=== PATIENT | female | born 1940 | race Caucasian/White ===

== ENCOUNTER 2017-10-02 10:12 | Outpatient (CLI) | payer MEDICARE | END 2017-10-02 10:13 | disposition home or self-care (01) | LOC: BICRAD 10:12 | PROVIDERS: ATTEND Internal Medicine Cardiovascular Disease | DX: R06.02 Shortness of breath (principal) | CPT/HCPCS: 71046 ==

== ENCOUNTER 2017-11-28 11:38 | Day surgery (SDC) | payer MEDICARE ==
[2017-11-28] MEDS ORDERED: Midazolam HCl 2 mg/2 ml Vial ONE (13:18)
[2017-11-28] MEDS ORDERED: Fentanyl 100 MCG/2 ML VIAL ONE (13:18)
--- NOTE | 2017-11-28 15:44 | MRI ---
MRI LUMBAR SPINE NONCONTRAST 11/28/17 HISTORY: Low back pain with right leg radiculopathy. FINDINGS: radiographs are not available for direct correction, therefore the lowest lumbar type vertebra will be designated as L5, with the remainder numbered accordingly. The conus medullaris has a normal appearance. Discogenic end plate changes are present throughout th e bone marrow. There is desiccation of all of the intervertebral discs. 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 Significant degenerative changes involve the partially visualized lower thoracic spine. At the T11-12 level, there is far right lateral protrusion of the intervertebral disc, compressing the right T11 n erve root within the neural foramen. T12-L1: Disc space narrowing. Posterior central disc protrusion with slight effacement of the thecal sac. Neural foramina are patent. L1-2: Disc space narrowing. Minimal degenerative retrolisthesis. Posterior disc bulge. Circumferentia l degenerative changes with mild stenosis of the central canal. Moderate to severe bilateral foramin al stenoses. L2-3: Very mild disc bulge. Mild stenosis of the central canal and each neural foramen. L3-4: Disc space narrowing. Minimal degenerative spondylolisthesis. Posterior disc bulge and circumfe rential degenerative changes with very severe stenosis of the central canal and moderate to severe st enosis of each neural foramen. L4-5: Grade I degenerative spondylolisthesis. Posterior disc bulge and circumferential degenerative c hanges with very severe stenosis of the central canal and severe stenosis of each neural foramen. L5-S1: Osteophytosis. Thecal sac is patent. Mild stenosis of each neural foramen. IMPRESSION: Severe multilevel degenerative changes throughout the lumbar spine including severe central canal and foraminal stenoses, most pronounced at the L3-4 and L4-5 levels. There is also far right lateral protrusion of the disc at the T11-12 level, compressing the right T11 nerve root. POS: [facility]
== END 2017-11-28 15:45 | disposition home or self-care (01) ==
LOC: SDC/OP 11:38
PROVIDERS: ATTEND Neurological Surgery
DX: M48.062 Spinal stenosis, lumbar region with neurogenic claudication (principal); M47.26 Other spondylosis with radiculopathy, lumbar region; M51.24 Other intervertebral disc displacement, thoracic region
CPT/HCPCS: 72148; J2250; J3010

== ENCOUNTER 2017-12-25 13:49 | Outpatient (CLI) | payer MEDICARE ==
[2017-12-25 15:44] LABS: Anion Gap 13 mmol/L (10-20); BUN (Urea Nitrogen) 16 mg/dL (9.8-20.1); Calc. Creatinine Clearance 0 mL/min (70-130); Calcium 10.5 mg/dL (7.8-10.44); Carbon Dioxide 31 mmol/L (23-31); Chloride 102 mmol/L (98-107); Estimated GFR-MDRD 57; Glucose 92 mg/dL (83-110); Potassium 3.5 mmol/L (3.5-5.1); Sodium 142 mmol/L (136-145)
== END 2017-12-25 13:50 | disposition home or self-care (01) ==
LOC: LABBT 13:49
PROVIDERS: ATTEND Neurological Surgery
DX: Z01.818 Encounter for other preprocedural examination (principal); M48.061 Spinal stenosis, lumbar region without neurogenic claudication
CPT/HCPCS: 80048; 93005; 93010

== ENCOUNTER 2017-12-27 06:21 | Day surgery (SDC) | payer MEDICARE ==
[2017-12-25 14:13] VITALS: BMI 33.3
--- NOTE | 2017-12-26 22:36 | HP ---
HISTORY OF PRESENT ILLNESS: Ms. Lara is a 77-year-old woman referred to us by Dr. Campo for severe low back pain and neurogenic claudication symptoms for many years. She has had epidural stero id injections and RFA procedures with him and while they did help, they are only for short-lived inte rvals. She had an MRI from [place] that reveals grade I spondylolisthesis at L3-L4 and L4-L5 with associated severe central canal and neural foraminal narrowing that likely accounts for the majority of her symptoms. PAST MEDICAL HISTORY: Significant for hypertension, gastroesophageal reflux disease, anxiety, hypert ension. CURRENT MEDICATIONS: Pantoprazole, lisinopril, furosemide, duloxetine, amlodipine, metoprolol, cloni dine, pravastatin, tramadol. ALLERGIES: SULFA DRUGS. PHYSICAL EXAMINATION: NEUROLOGIC: The patient is alert and oriented x3. Gait is severely antalgic and slowed with a stoop ed posture. Lower extremity motor exam is normal. ASSESSMENT: Lumbar neurogenic claudication. PLAN: Dr. Hernandez met with the patient, reviewed imaging, and ultimately advocated for an L3 through L 5 decompression. He explained to the patient the risks, benefits, and alternatives of the procedure. The patient expressed understanding and would like to move forward with surgery as discussed. I do believe the patient is mentally competent and capable of making medical decisions for herself. We w ill move forward with surgery as planned. Winston Flor PA-C dictating for Dr. Hernandez.
[2017-12-27] MEDS ORDERED: CEFAZOLIN/Water 2 GM/20 ML SYRINGE ONE ×2 (07:01→16:36)
[2017-12-27] MEDS ORDERED: Bupivacaine HCl 0.5%/Epinephrine 1:200,000/PF 30 ml Vial ONE (07:33)
[2017-12-27] MEDS ORDERED: Fentanyl 100 MCG/2 ML VIAL ONE ×2 (08:50→11:18)
--- NOTE | 2017-12-27 13:09 | OP ---
DATE OF PROCEDURE: 12/27/2017 SURGEON: Perry Hernandez M.D. MUFFLER TENDER: Winston Flor PA-C. INDICATION: Pain. DIAGNOSIS: Lumbar stenosis. PROCEDURE PERFORMED: L3 through L5 lumbar decompression. ANESTHESIA: General. TECHNIQUE: The patient was brought into the operating room and placed under general anesthesia. She was flipped from a supine or prone position on the operating room table. A linear incision was plan nirav spanning L3 through L5. After prepping and draping and after an appropriate operative pause, the incision was created. The soft tissues were swept away from midline. Self-retaining retractors wer e placed in the wound for optimal exposure. After confirming the appropriate level with C-arm fluoro scopy, an Adson rongeur was used to remove the spinous processes of L3 through L5. High-speed cuttin g drill bit as well as 2, 3 and 4-mm Kerrisons were then used to perform a laminectomy extending from the mid portion of L3 to the mid portion of L5. After decompressing these segments, the wound was i rrigated. Hemostasis was maintained throughout. The wound was then closed in anatomic layers and a pressure dressing was applied. There were no known procedural complications.
[2017-12-27] MEDS ORDERED: Acetaminophen/Codeine 30-300mg Tablet ONE (13:20)
[2017-12-27] MEDS ORDERED: PROPOFOL 200 MG/20 ML VIAL ONE (13:42)
[2017-12-27] MEDS ORDERED: Glycopyrrolate 0.2 MG/ML 5 ML SYRINGE ONE (13:42)
[2017-12-27] MEDS ORDERED: ePHEDrine/0.9% NaCl/PF SYRINGE 50 mg/10 ml ONE (13:42)
[2017-12-27] MEDS ORDERED: PHENYLEPHRINE-NS 100 MCG/ML 10 ML SYRINGE ONE (13:42)
[2017-12-27] MEDS ORDERED: Dexamethasone 20 MG/5 ML VIAL ONE (13:42)
[2017-12-27] MEDS ORDERED: Lidocaine 1% PF 5 ML VIAL ONE (13:42)
[2017-12-27] MEDS ORDERED: Ondansetron PF 4 MG/2 ML Vial ONE (13:42)
== END 2017-12-27 17:30 | disposition home or self-care (01) ==
LOC: SDC 06:21
PROVIDERS: ATTEND Neurological Surgery
PROC: 00NY0ZZ Release Lumbar Spinal Cord, Open Approach (ICD-10-PCS; principal; 2017-12-27)
DX: M48.062 Spinal stenosis, lumbar region with neurogenic claudication (principal); I10 Essential (primary) hypertension; K21.9 Gastro-esophageal reflux disease without esophagitis; Z88.2 Allergy status to sulfonamides; Z79.899 Other long term (current) drug therapy
CPT/HCPCS: 76001; 96374; 96375; J0131; J0670; J1100; J2001; J2405; J2704; J3010

== ENCOUNTER 2018-03-06 10:15 | Outpatient (CLI) | payer MEDICARE | END 2018-03-06 10:16 | disposition home or self-care (01) | LOC: BICMAMMO 10:15 | PROVIDERS: ATTEND Internal Medicine | DX: Z12.31 Encounter for screening mammogram for malignant neoplasm of breast (principal); N63.10 Unspecified lump in the right breast, unspecified quadrant; N63.20 Unspecified lump in the left breast, unspecified quadrant | CPT/HCPCS: 77063; 77067 ==

== ENCOUNTER 2018-05-07 15:18 | Outpatient (CLI) | payer MEDICARE ==
--- NOTE | 2018-05-07 18:42 | MRI ---
MRI CERVICAL SPINE NONCONTRAST: 05/07/2018 HISTORY: A 77-year-old female with M54.12, cervical radiculopathy, and cervicalgia. COMPARISON: None. FINDINGS: Vertebral body heights are maintained. Mild to moderate disk space narrowing at all levels, greatest at C4-C5 and at C5-C6. Vertebral body heights are maintained. Large, approximately 1.2 cm, heterog eneously T1 hyperintense and hypointense, and heterogeneously STIR hyperintense and hypointense, intr aosseous lesion involving a large portion of the T1 vertebral body, probably a hemangioma of bone (ve nous malformation of bone). Broad-based and irregularity-shaped disk-osteophytic bar complexes encro ach upon the ventral aspect of the spinal canal at all levels. In addition to the broad-based ones, there is a focal left paracentral such disk-osteophyte complex or small disk herniation at C5-C6, ind enting the ventral surface of the spinal cord. Bilateral uncinate process osteophytes encroach upon the neural foramina, causing varying degrees of neural foraminal stenosis. Multilevel bilateral dege nerative facet disease, ranging in severity from normal bilaterally at C5-C6 to severe on the left at C3-C4 and C4-C5. Moderate facet DJD at C7-T1 bilaterally, causing grade 1 anterolisthesis of C7 on T1. Findings regarding the spinal canal and the neural foraminal caliber are as follows: C1-C2: No central stenosis. C2-C3: Ligamentum flavum thickening. Mild central stenosis. Severe right neural foraminal stenosis . Mild to moderate left neural foraminal stenosis. C3-C4: Mild central stenosis. Moderate to severe bilateral neural foraminal stenosis. C4-C5: Moderate central spinal canal stenosis. Moderate right neural foraminal stenosis. Severe le ft neural foraminal stenosis. C5-C6: Small, focal, left paracentral disk-osteophyte complex or disk herniation slightly indents th e left ventral surface of the spinal cord. Ligamentum flavum thickening. Severe central spinal reji l stenosis. Moderate to severe bilateral neural foraminal stenosis. C6-C7: Moderate to severe central spinal canal stenosis. Mild to moderate bilateral neural foramina l stenosis. C7-T1: No central stenosis. Mild to moderate bilateral neural foraminal stenosis. IMPRESSION: 1. Moderate cervical spondylosis with multilevel degenerative disk disease and facet osteoarthrosis of varying degrees. 2. Severe central spinal canal stenosis at C5-C6. 3. Multilevel high-grade neural foraminal stenosis, including severe. POS: [facility]
== END 2018-05-07 15:19 | disposition home or self-care (01) ==
LOC: TBSIIMAG 15:18
PROVIDERS: ATTEND Neurological Surgery
DX: M47.22 Other spondylosis with radiculopathy, cervical region (principal); M50.10 Cervical disc disorder with radiculopathy, unspecified cervical region; M48.02 Spinal stenosis, cervical region
CPT/HCPCS: 72141

== ENCOUNTER 2018-09-13 09:55 | Outpatient (CLI) | payer MEDICARE ==
--- NOTE | 2018-09-17 10:58 | RAD ---
MODIFIED BARIUM SWALLOW WITH SPEECH THERAPIST: Date: 09/13/18 HISTORY: Unspecified dysphagia, feeding difficulty, vocal cord lesion. Fluoroscopy Time: 31 seconds. Dose: 0.11844 mGy*M^2. FINDINGS/IMPRESSION: Minimal delay in swallowing reflex. Several episodes of penetration without nasir aspiration. Please see speech therapy report for additional findings and recommendations. POS: [facility]
== END 2018-09-13 09:56 | disposition home or self-care (01) ==
PROVIDERS: ATTEND Physician Assistant Medical
DX: I69.991 Dysphagia following unspecified cerebrovascular disease (principal); R63.3 Feeding difficulties; J38.3 Other diseases of vocal cords
CPT/HCPCS: 74230

== ENCOUNTER 2018-10-26 09:19 | Outpatient (CLI) | payer MEDICARE ==
--- NOTE | 2018-10-26 10:13 | BD ---
EXAM: DEXA bone density examination HISTORY: 78-year-old postmenopausal female for screening COMPARISON: None FINDINGS: L1--bone mineral density 0.790 g/sq cm; T score -1.8 L2--bone mineral density 0.924 g/sq cm; T score -0.9 L3--bone mineral density 0.948 g/sq cm; T score -1.2 L4--bone mineral density 0.970 g/sq cm; T score -0.8 Total L1-L4--bone mineral density 0.910 g/sq cm; T score -1.2 Left femoral neck--bone mineral density0.641; T score -1.9 Total proximal left femur--bone mineral density 0.747; T score -1.6 IMPRESSION: Osteopenia. This patient has a 10 year WHO fracture risk of a major osteoporotic fracture of 12% and of a hip fracture of 3%.
== END 2018-10-26 09:20 | disposition home or self-care (01) ==
LOC: BICMAMMO 09:19
PROVIDERS: ATTEND Internal Medicine Rheumatology
DX: M81.0 Age-related osteoporosis without current pathological fracture (principal); M85.89 Other specified disorders of bone density and structure, multiple sites
CPT/HCPCS: 77080

== ENCOUNTER 2018-11-14 13:27 | Outpatient (CLI) | payer MEDICARE ==
--- NOTE | 2018-11-14 13:42 | RAD ---
XR Thoracic Spine 2 View HISTORY: Back pain no injury. COMPARISON: None. FINDINGS: The bones are demineralized. There is a mild scoliotic change to the lower thoracic spine c onvex to the left. Marked degenerative osteophytic changes of the mid and lower thoracic spine region are noted. Pedicles are intact. IMPRESSION: Scoliosis and marked arthritic changes of the spine.
== END 2018-11-14 13:28 | disposition home or self-care (01) ==
LOC: BICRAD 13:27
PROVIDERS: ATTEND Internal Medicine Rheumatology
DX: M81.0 Age-related osteoporosis without current pathological fracture (principal); M41.9 Scoliosis, unspecified; M46.94 Unspecified inflammatory spondylopathy, thoracic region
CPT/HCPCS: 72070

== ENCOUNTER 2019-12-06 13:43 | Outpatient (CLI) | payer MEDICARE ==
--- NOTE | 2019-12-06 14:16 | BD ---
EXAM: DEXA bone density examination HISTORY: 79-year-old postmenopausal female for screening COMPARISON: 10/26/2018 FINDINGS: L1--bone mineral density 0.846 g/sq cm; T score -1.3 L2--bone mineral density 0.979 g/sq cm; T score -0.4 L3--bone mineral density 1.030 g/sq cm; T score -0.5 L4--bone mineral density 1.114 g/sq cm; T score 0.5 Total L1-L4--bone mineral density 0.997 g/sq cm; T score -0.5 Left femoral neck--bone mineral density0.684; T score -1.5 Total proximal left femur--bone mineral density 0.866; T score -0.6 Right femoral neck--bone mineral density0.645; T score -1.8 Total proximal right femur--bone mineral density 0.788; T score -1.3 IMPRESSION: Osteopenia. This patient has a 10 year WHO fracture risk of a major osteoporotic fracture of 13% and of a hip fracture of 3.2%.
== END 2019-12-06 13:44 | disposition home or self-care (01) ==
LOC: BICMAMMO 13:43
PROVIDERS: ATTEND Internal Medicine Rheumatology
DX: M81.0 Age-related osteoporosis without current pathological fracture (principal); M85.89 Other specified disorders of bone density and structure, multiple sites
CPT/HCPCS: 77080

== ENCOUNTER 2020-04-20 14:48 | Outpatient (CLI) | payer MEDICARE ==
--- NOTE | 2020-04-20 15:20 | MMO ---
Bilateral MAMMO Bilat Screen [facility]. CLINICAL HISTORY: Patient is 79 years old and is seen for screening. The patient has no family history of breast cancer. The patient has no personal history of cancer. The patient has a history of left cyst aspiration - benign. VIEWS: The views performed were: bilateral craniocaudal with tomosynthesis and bilateral mediolateral oblique with tomosynthesis. FILMS COMPARED: The present examination has been compared to prior imaging studies performed at [facility] on 02/10/2015, 01/28/2016, 02/27/2017 and 03/06/2018. This study has been interpreted with the assistance of computer-aided detection. MAMMOGRAM FINDINGS: There are scattered fibroglandular densities. There are benign appearing calcifications seen in both breasts. There are no suspicious masses, suspicious calcifications, or new areas of architectural distortion. IMPRESSION: THERE IS NO MAMMOGRAPHIC EVIDENCE OF MALIGNANCY. A ROUTINE FOLLOW-UP MAMMOGRAM IN 1 YEAR IS RECOMMENDED. THE RESULTS OF THIS EXAM WERE SENT TO THE PATIENT. ACR BI-RADS Category 2 - Benign finding MAMMOGRAPHY NOTE: 1. A negative mammogram report should not delay a biopsy if a dominant of clinically suspicious mass is present. 2. Approximately 10% to 15% of breast cancers are not detected by mammography. 3. Adenosis and dense breasts may obscure an underlying neoplasm. Reported by: DILEEP COLVIN MD Electonically Signed: [id number]
== END 2020-04-20 14:49 | disposition home or self-care (01) ==
LOC: BICMAMMO 14:48
PROVIDERS: ATTEND Family Medicine
DX: Z12.31 Encounter for screening mammogram for malignant neoplasm of breast (principal)
CPT/HCPCS: 77063; 77067

== ENCOUNTER 2021-03-08 10:20 | Inpatient (IN) | payer MEDICARE ==
[2021-03-08] MEDS ORDERED: Cefepime 2 GM VIAL ONE (11:14)
[2021-03-08 11:17] LABS: ALT (SGPT) 87 U/L (8-55); AST (SGOT) 87 U/L (5-34); Albumin 3.4 g/dL (3.4-4.8); Alkaline Phosphatase 68 U/L (40-110); Anion Gap 17 mmol/L (10-20); BUN (Urea Nitrogen) 27 mg/dL (9.8-20.1); Bilirubin, Total 1.8 mg/dL (0.2-1.2); Calc. Creatinine Clearance 0 mL/min (70-130); Calcium 8.8 mg/dL (7.8-10.44); Carbon Dioxide 24 mmol/L (23-31); Chloride 101 mmol/L (98-107); Globulin 2.2 g/dL (2.4-3.5); Glucose 100 mg/dL (83-110); Potassium 4.1 mmol/L (3.5-5.1); Protein, Total 5.6 g/dL (5.8-8.1); Sodium 138 mmol/L (136-145)
[2021-03-08 11:32] LABS: Hemoglobin 13.2 g/dL (12.0-16.0); Mean Corpuscular HGB CONC 33.3 g/dL (32.0-36.0); Mean Corpuscular Hemoglobin 32.8 pg (27.0-31.0); Mean Corpuscular Volume 98.5 fL (78.0-98.0); Mean Platelet Volume 7.4 fL (7.4-10.4); Platelet Count 282 thou/uL (130-400); RBC Distribution Width 13.8 % (11.5-14.5); Red Blood Cell (RBC) Count 4.02 mill/uL (4.20-5.40); White Blood Cell (WBC) Count 14.6 thou/uL (4.8-10.8)
[2021-03-08 11:39] LABS: CKMB 4.2 ng/mL (0-6.6)
[2021-03-08 11:54] LABS: Band 47 % (5-11); Lymphocytes 13 % (21-51); MDiff Complete? YES; Metamyelocyte 8 % (0-0); Monocytes 2 % (0-10); Myelocyte 1 % (0-0); Neutrophil 29 % (42-75); Nucleated RBC 1 % (0); Platelet Morphology Comment Appears Adequate; Polychromasia SLIGHT = 2-3 cells (100X) (0-2/hpf); Reflex for Review?? YES; Vacuoles MODERATE
[2021-03-08] MEDS ORDERED: VANCOMYCIN 1.75 GM/350 ML BAG 1.75 GM in Premix Bag 1 BAG IVPB SCH (12:15)
[2021-03-08] MEDS ORDERED: Vancomycin HCl 1 GM in Sodium Chloride 0.9% 250 ML 300 ML IVPB SCH (12:48)
[2021-03-08] MEDS ORDERED: Senokot S 8.6-50 MG TAB PO PRN (12:48)
[2021-03-08] MEDS ORDERED: Ondansetron PF 4 MG/2 ML Vial IVP PRN (12:48)
[2021-03-08] MEDS ORDERED: Norepinephrine 8 MG/0.9% NS 250 ML IVPB SCH (12:48)
[2021-03-08] MEDS ORDERED: Sodium Chloride 0.9% 1,000 ML IV SCH (12:48)
[2021-03-08] MEDS ORDERED: Calcium Carbonate 500 MG ChewTAB PO PRN (12:48)
[2021-03-08] MEDS ORDERED: Bisacodyl 10 MG SUPP PR PRN (12:48)
[2021-03-08] MEDS ORDERED: Guaifenesin DM 100-10/5 ML UDCUP PO PRN (12:48)
[2021-03-08] MEDS ORDERED: HYDROcodone/Acetaminophen 5/325 mg Tablet PO PRN (12:48)
[2021-03-08 12:54] LABS: Bacteria/HPF None Seen HPF (None Seen); Bilirubin Negative (Negative); Blood, Urine Negative (Negative); Clarity Turbid (Clear); Glucose, Urine (Dipstick) Normal (Negative); Ketone, Urine Negative (Negative); Leukocyte Negative Leu/uL (Negative); Nitrite Negative (Negative); Protein, Urine (Dipstick) 200 mg/dL (Neg-Trace); RBC/HPF 0-3 HPF (0-3); Specific Gravity, Urine 1.017 (1.002-1.036); Squamous Epithelial 0-3 HPF (0-3); Urobilinogen Normal mg/dL (Less than 2); WBC/HPF 0-3 HPF (0-3); pH, Urine 5.5 (5.0-9.0)
[2021-03-08 14:23] LABS: Lactic Acid 5.1 mmol/L (0.5-2.2)
[2021-03-08] MEDS ORDERED: Clindamycin/D5W 900 mg/50 ml Premix Bag ONE (14:23)
[2021-03-08 17:24] LABS: CKMB 5.6 ng/mL (0-6.6)
[2021-03-08 18:47] LABS: SARS-CoV-2 NAA Rapid Test Not Detected (NotDetected)
[2021-03-08] MEDS ORDERED: Clindamycin/D5W 600 MG in Premix Bag 1 BAG IVPB SCH (22:00)
[2021-03-08] MEDS ORDERED: Cefepime 1 GM in Sodium Chloride 0.9% 100 ML IVPB SCH (23:00)
[2021-03-09] MEDS ORDERED: Multivit, Therapeutic 1 TAB PO SCH (09:00)
[2021-03-09] MEDS ORDERED: Enoxaparin Sodium 40 MG/0.4 ML SYRINGE SC SCH (09:00)
[2021-03-09] MEDS ORDERED: DULoxetine 60 MG CAP PO SCH (09:00)
[2021-03-09] MEDS ORDERED: Aspirin 81 mg Enteric Coated Tablet PO SCH (09:00)
== END 2021-03-08 17:37 | disposition short-term general hospital (02) | DRG 871 ==
LOC: ERS 10:20 → ERHOLD 12:48
PROVIDERS: ADMIT Internal Medicine; ATTEND Internal Medicine
DX: A41.9 Sepsis, unspecified organism (principal); R65.21 Severe sepsis with septic shock; N17.9 Acute kidney failure, unspecified; L03.116 Cellulitis of left lower limb; Z20.822 Contact with and (suspected) exposure to COVID-19; I10 Essential (primary) hypertension; M19.90 Unspecified osteoarthritis, unspecified site; K21.9 Gastro-esophageal reflux disease without esophagitis; F41.9 Anxiety disorder, unspecified; E78.5 Hyperlipidemia, unspecified; F32.A Depression, unspecified; R79.89 Other specified abnormal findings of blood chemistry; Z88.2 Allergy status to sulfonamides; Z79.899 Other long term (current) drug therapy
CPT/HCPCS: 36415; 71045; 80053; 81003; 81015; 82553; 83605; 84145; 84484; 85025; 85060; 87040; 87086; 93005; 94760; J0692; J3370; J3490; U0002

== ENCOUNTER 2021-12-14 15:14 | Outpatient (CLI) | payer MEDICARE | END 2021-12-14 15:15 | disposition home or self-care (01) | LOC: BICRAD 15:14 | PROVIDERS: ATTEND Internal Medicine Rheumatology | DX: M15.9 Polyosteoarthritis, unspecified (principal) ==

== ENCOUNTER 2022-01-03 09:47 | Outpatient (CLI) | payer MEDICARE | END 2022-01-03 09:48 | disposition home or self-care (01) | LOC: BICMAMMO 09:47 | PROVIDERS: ATTEND Internal Medicine Rheumatology | DX: M81.0 Age-related osteoporosis without current pathological fracture (principal); M85.851 Other specified disorders of bone density and structure, right thigh; M85.852 Other specified disorders of bone density and structure, left thigh | CPT/HCPCS: 77080 ==

== ENCOUNTER 2022-03-21 15:31 | Outpatient (CLI) | payer MEDICARE | END 2022-03-21 15:32 | disposition home or self-care (01) | LOC: BICRAD 15:31 | PROVIDERS: ATTEND Nurse Practitioner Family | DX: M47.816 Spondylosis without myelopathy or radiculopathy, lumbar region (principal); M43.16 Spondylolisthesis, lumbar region | CPT/HCPCS: 72100 ==

== ENCOUNTER 2022-05-09 13:16 | Outpatient (CLI) | payer MEDICARE | END 2022-05-09 13:17 | disposition home or self-care (01) | LOC: CT 13:16 | PROVIDERS: ATTEND Neurological Surgery | DX: M43.16 Spondylolisthesis, lumbar region (principal); M47.816 Spondylosis without myelopathy or radiculopathy, lumbar region; Z98.890 Other specified postprocedural states | CPT/HCPCS: 72131 ==

== ENCOUNTER 2022-05-31 13:47 | Outpatient (CLI) | payer MEDICARE | END 2022-05-31 13:48 | disposition home or self-care (01) | LOC: BICMAMMO 13:47 | PROVIDERS: ATTEND Family Medicine | DX: Z12.31 Encounter for screening mammogram for malignant neoplasm of breast (principal); Z98.890 Other specified postprocedural states | CPT/HCPCS: 77063; 77067 ==

== ENCOUNTER 2022-08-25 12:18 | Inpatient (IN) | payer MEDICARE ==
[2022-08-25] MEDS ORDERED: cefTRIAXone (ROCEPHIN) 1 GM VIAL ONE (13:01)
[2022-08-25 13:21] LABS: #Basophils 0.1 thou/uL (0.0-0.2); #Eosinphils 0.3 thou/uL (0.0-0.7); #Lymphocytes 0.5 thou/uL (1.20-3.40); #Monocytes 0.6 thou/uL (0.11-0.59); #Neutrophils 9.3 thou/uL (1.40-6.50); %Basophils 0.8 % (0.0-1.0); %Eosinophils 2.5 % (0.0-10.0); %Lymphocytes 4.8 % (21.0-51.0); %Monocytes 5.1 % (0.0-10.0); %Neutrophils 86.8 % (42.0-75.0); Hemoglobin 11.8 g/dL (12.0-16.0); Mean Corpuscular HGB CONC 32.7 g/dL (32.0-36.0); Mean Corpuscular Hemoglobin 32.2 pg (27.0-31.0); Mean Corpuscular Volume 98.7 fl (78.0-98.0); Mean Platelet Volume 7.6 fL (7.4-10.4); Platelet Count 200 10x3/uL (130-400); Red Blood Cell (RBC) Count 3.67 mill/uL (4.20-5.40); White Blood Cell (WBC) Count 10.7 10x3/uL (4.8-10.8)
[2022-08-25 13:48] LABS: ALT (SGPT) 20 U/L (8-55); AST (SGOT) 31 U/L (5-34); Albumin 3.8 g/dL (3.4-4.8); Alkaline Phosphatase 63 U/L (40-110); Anion Gap 14 mmol/L (10-20); BUN (Urea Nitrogen) 17 mg/dL (9.8-20.1); Bilirubin, Total 1.4 mg/dL (0.2-1.2); Calc. Creatinine Clearance 0 mL/min (70-130); Calcium 9.2 mg/dL (7.8-10.44); Carbon Dioxide 25 mmol/L (23-31); Chloride 104 mmol/L (98-107); Estimated GFR 47; Globulin 2.8 g/dL (2.4-3.5); Glucose 107 mg/dL (83-110); Potassium 3.6 mmol/L (3.5-5.1); Protein, Total 6.6 g/dL (5.8-8.1); Sodium 139 mmol/L (136-145)
[2022-08-25] MEDS ORDERED: Vancomycin 1 GM/200 ML (FROZEN) BAG ONE (14:20)
[2022-08-25 14:50] LABS: Bacteria/HPF None Seen HPF (None Seen); Bilirubin Negative (Negative); Blood, Urine Negative (Negative); Clarity Clear (Clear); Glucose, Urine (Dipstick) Normal (Negative); Ketone, Urine Negative (Negative); Leukocyte 25 Leu/uL (Negative); Nitrite Negative (Negative); Protein, Urine (Dipstick) Negative (Neg-Trace); RBC/HPF None Seen HPF (0-3); Specific Gravity, Urine 1.008 (1.002-1.036); Squamous Epithelial None Seen HPF (0-3); Urobilinogen Normal mg/dL (Less than 2); WBC/HPF 0-3 HPF (0-3)
[2022-08-25] MEDS ORDERED: Acetaminophen 500 MG TAB PO PRN (15:17)
[2022-08-25] MEDS ORDERED: hydrALAZINE 20 MG/ML VIAL SLOW IVP PRN (15:17)
[2022-08-25] MEDS ORDERED: Ondansetron PF 4 MG/2 ML Vial IVP PRN (15:17)
[2022-08-25] MEDS ORDERED: Ondansetron ODT 4 MG TAB PO PRN (15:17)
[2022-08-25 15:38] VITALS: BMI 27.7
[2022-08-25] MEDS ORDERED: traMADol HCl 50 MG TAB PO PRN (15:38)
[2022-08-25] MEDS: Sodium Chloride 0.9% 1,000 ML IV SCH (15:48)
[2022-08-25 16:56] LABS: Lactic Acid 0.8 mmol/L (0.5-2.2)
[2022-08-25] MEDS ORDERED: Vancomycin HCl 1 GM in Sodium Chloride 0.9% 250 ML 250 ML IVPB SCH (21:00)
[2022-08-25] MEDS: Simvastatin 10 MG TAB PO SCH (21:10)
[2022-08-25] MEDS: Amlodipine 5 MG TAB PO SCH (21:10)
[2022-08-25] MEDS: Famotidine 20 MG TAB PO SCH (21:10)
[2022-08-25] MEDS: cloNIDine 0.1 MG TAB PO SCH (21:10)
[2022-08-26] MEDS: Sodium Chloride 0.9% 1,000 ML IV SCH (04:20)
[2022-08-26 06:51] LABS: #Eosinphils 0.3 thou/uL (0.0-0.7); #Lymphocytes 0.9 thou/uL (1.20-3.40); #Monocytes 0.4 thou/uL (0.11-0.59); #Neutrophils 3.7 thou/uL (1.40-6.50); %Basophils 0.7 % (0.0-1.0); %Eosinophils 5.8 % (0.0-10.0); %Lymphocytes 16.3 % (21.0-51.0); %Monocytes 8.3 % (0.0-10.0); Hemoglobin 10.7 g/dL (12.0-16.0); Mean Corpuscular HGB CONC 34.4 g/dL (32.0-36.0); Mean Corpuscular Hemoglobin 33.9 pg (27.0-31.0); Mean Corpuscular Volume 98.6 fl (78.0-98.0); Platelet Count 186 10x3/uL (130-400); RBC Distribution Width 11.8 % (11.5-14.5); Red Blood Cell (RBC) Count 3.15 mill/uL (4.20-5.40); White Blood Cell (WBC) Count 5.3 10x3/uL (4.8-10.8)
[2022-08-26 07:15] LABS: ALT (SGPT) 21 U/L (8-55); AST (SGOT) 29 U/L (5-34); Albumin 3.4 g/dL (3.4-4.8); Alkaline Phosphatase 66 U/L (40-110); Anion Gap 11 mmol/L (10-20); BUN (Urea Nitrogen) 11 mg/dL (9.8-20.1); Bilirubin, Total 0.7 mg/dL (0.2-1.2); Calc. Creatinine Clearance 63 mL/min (70-130); Calcium 8.5 mg/dL (7.8-10.44); Carbon Dioxide 24 mmol/L (23-31); Chloride 107 mmol/L (98-107); Estimated GFR 76; Globulin 2.4 g/dL (2.4-3.5); Glucose 93 mg/dL (83-110); Potassium 3.5 mmol/L (3.5-5.1); Protein, Total 5.8 g/dL (5.8-8.1); Sodium 138 mmol/L (136-145)
[2022-08-26] MEDS: Famotidine 20 MG TAB PO SCH ×2 (08:52→20:33)
[2022-08-26] MEDS: Amlodipine 5 MG TAB PO SCH (08:53)
[2022-08-26] MEDS ORDERED: Aspirin 81 mg Enteric Coated Tablet PO SCH (09:00)
[2022-08-26] MEDS ORDERED: Vancomycin 1 GM in Premix Bag 1 BAG IVPB SCH (14:00)
[2022-08-26] MEDS: cefTRIAXone\\ROCEPHIN 1 GM in Sodium Chloride 0.9% 100 ML IVPB SCH (17:27)
[2022-08-26] MEDS: Simvastatin 10 MG TAB PO SCH (20:33)
[2022-08-26] MEDS: cloNIDine 0.1 MG TAB PO SCH (20:33)
[2022-08-26] MEDS: Melatonin 3 MG TAB PO PRN (21:45)
[2022-08-27 07:02] LABS: Hemoglobin 10.8 g/dL (12.0-16.0)
[2022-08-27] MEDS: Famotidine 20 MG TAB PO SCH ×2 (08:52→20:14)
[2022-08-27] MEDS: Amlodipine 10 MG TAB PO SCH (08:52)
[2022-08-27] MEDS ORDERED: Vancomycin 1 GM in Premix Bag 1 BAG IVPB SCH (13:00)
[2022-08-27] MEDS ORDERED: VANCOMYCIN IVPB SCH (13:15)
[2022-08-27] MEDS ORDERED: ADMIXTURE FEE IVPB SCH (13:15)
[2022-08-27 13:20] LABS: Vancomycin, Trough 7.3 ug/mL
[2022-08-27] MEDS ORDERED: VANCOMYCIN 1.25 GM/250 ML BAG 1.25 GM in Premix Bag 1 BAG IVPB SCH (14:00)
[2022-08-27] MEDS: cefTRIAXone\\ROCEPHIN 1 GM in Sodium Chloride 0.9% 100 ML IVPB SCH (16:45)
[2022-08-27] MEDS: cloNIDine 0.1 MG TAB PO SCH (20:14)
[2022-08-27] MEDS: Melatonin 3 MG TAB PO PRN (20:14)
[2022-08-27] MEDS: Simvastatin 10 MG TAB PO SCH (20:16)
[2022-08-27] MEDS ORDERED: Aspirin 81 mg Enteric Coated Tablet PO SCH (21:00)
[2022-08-28 03:38] VITALS: TEMP 97.9
[2022-08-28 08:23] VITALS: BP 146/89
[2022-08-28] MEDS: Amlodipine 10 MG TAB PO SCH (09:35)
[2022-08-28] MEDS: Famotidine 20 MG TAB PO SCH (09:35)
[2022-08-28] MEDS ORDERED: VANCOMYCIN 1.25 GM/250 ML BAG 1.25 GM in Premix Bag 1 BAG IVPB SCH (14:00)
== END 2022-08-28 10:55 | disposition home or self-care (01) | DRG 603 ==
LOC: ERS 12:18 → T4-B 15:23
PROVIDERS: ADMIT Internal Medicine; ATTEND Internal Medicine
DX: L03.114 Cellulitis of left upper limb (principal); N17.9 Acute kidney failure, unspecified; I10 Essential (primary) hypertension; F41.9 Anxiety disorder, unspecified; E78.5 Hyperlipidemia, unspecified; K21.9 Gastro-esophageal reflux disease without esophagitis; M19.90 Unspecified osteoarthritis, unspecified site; Z79.82 Long term (current) use of aspirin; Z88.2 Allergy status to sulfonamides; Z82.49 Family history of ischemic heart disease and other diseases of the circulatory system; Z79.899 Other long term (current) drug therapy
CPT/HCPCS: 36415; 80053; 80202; 81003; 81015; 82565; 83605; 83880; 85014; 85018; 85025; 86140; 87040; 87086; 96365; 96367; J0696; J3370; J3370-JW; J3490; J7050

== ENCOUNTER 2022-11-09 14:18 | Emergency (ER) | payer MEDICARE ==
[2022-11-09 15:56] LABS: #Eosinphils 0.1 thou/uL (0.0-0.7); #Monocytes 0.7 thou/uL (0.11-0.59); #Neutrophils 3.1 thou/uL (1.40-6.50); %Basophils 0.6 % (0.0-1.0); %Eosinophils 2.4 % (0.0-10.0); %Lymphocytes 16.3 % (21.0-51.0); %Monocytes 14.4 % (0.0-10.0); %Neutrophils 66.1 % (42.0-75.0); Hemoglobin 11.3 g/dL (12.0-16.0); Mean Corpuscular HGB CONC 32.9 g/dL (32.0-36.0); Mean Corpuscular Hemoglobin 32.1 pg (27.0-31.0); Mean Corpuscular Volume 97.4 fl (78.0-98.0); Platelet Count 215 10x3/uL (130-400); Red Blood Cell (RBC) Count 3.52 mill/uL (4.20-5.40); White Blood Cell (WBC) Count 4.7 10x3/uL (4.8-10.8)
[2022-11-09] MEDS ORDERED: Cefepime 2 GM VIAL ONE (16:00)
[2022-11-09 16:23] LABS: ALT (SGPT) 19 U/L (8-55); AST (SGOT) 23 U/L (5-34); Albumin 3.5 g/dL (3.4-4.8); Alkaline Phosphatase 59 U/L (40-110); Anion Gap 12 mmol/L (10-20); BUN (Urea Nitrogen) 19 mg/dL (9.8-20.1); Bilirubin, Total 0.7 mg/dL (0.2-1.2); Calc. Creatinine Clearance 0 mL/min (70-130); Calcium 8.1 mg/dL (7.8-10.44); Carbon Dioxide 25 mmol/L (23-31); Chloride 106 mmol/L (98-107); Estimated GFR 49; Glucose 123 mg/dL (83-110); Potassium 3.6 mmol/L (3.5-5.1); Protein, Total 5.5 g/dL (5.8-8.1); Sodium 139 mmol/L (136-145)
== END 2022-11-09 17:35 | disposition home or self-care (01) ==
LOC: ERS 14:18
DX: L03.113 Cellulitis of right upper limb (principal); I10 Essential (primary) hypertension; Z79.899 Other long term (current) drug therapy; Z79.82 Long term (current) use of aspirin
CPT/HCPCS: 36415; 80053; 83605; 85025; 87040; 96365; J0692

== ENCOUNTER 2024-05-09 14:48 | Outpatient (CLI) | payer MEDICARE | END 2024-05-09 14:49 | disposition home or self-care (01) | LOC: BICMAMMO 14:48 | PROVIDERS: ATTEND Internal Medicine Rheumatology | DX: M81.0 Age-related osteoporosis without current pathological fracture (principal); M85.851 Other specified disorders of bone density and structure, right thigh; M85.852 Other specified disorders of bone density and structure, left thigh | CPT/HCPCS: 77080 ==